=== PATIENT | male | born 1955 | race Caucasian/White ===

== ENCOUNTER → 2020-03-04 07:39 | Outpatient (CLI) | payer SELFPAY ==
--- NOTE | 2020-03-04 07:54 | CT_ITS ---
PROCEDURE: CT HEART W CALCIUM SCORE CLINICAL HISTORY: SCREENING COMPARISON: No exams were available for comparison TECHNIQUE: Axial images obtained with sagittal and coronal reformats. All CT scans at the facility use one or more dose reduction, viz: automated exposure control, ma/kV adjustment per patient size (including targeted exams where dose is matched to indication, i.e. head), or iterative reconstruction technique. FINDINGS: The calcium score is 2. minimal calcific plaque burden with low cardiovascular disease risk Incidental note is made of a 3 cm left adrenal nodule. This is low-density measuring -18 Hounsfield units consistent with an adenoma. IMPRESSION: Minimal calcific plaque burden with low cardiovascular disease risk Left adrenal adenoma Dictated by: Piter Cline MD 03/04/2020 17:23 Piter Cline MD in [place] 03/04/2020 17:23
== END ==
PROVIDERS: PCP Family Medicine; Visit Provider Family Medicine
DX: Z13.6 Encounter for screening for cardiovascular disorders (principal)
CPT/HCPCS: 75571

== ENCOUNTER → 2020-05-17 09:18 | Outpatient (CLI) | payer OTHER, SELFPAY ==
[2020-05-17 11:22] LABS: Coronavirus 19 IgG Antibody Negative (Negative); Coronavirus 19 IgM Antibody Negative (Negative)
== END ==
PROVIDERS: Visit Provider Ophthalmology
DX: Z01.818 Encounter for other preprocedural examination (principal)
CPT/HCPCS: 36415; 86328

== ENCOUNTER 2020-05-18 09:04 | Day surgery (SDC) | payer MEDICARE, SELFPAY ==
[2020-05-18 10:13] VITALS: BP 126/79; PULSE 77; RESP 18; TEMP 36.7; O2SAT 93; BMI 47.7
[2020-05-18 11:17] VITALS: BP 104/56; PULSE 72; RESP 18; O2SAT 97
[2020-05-18 11:22] VITALS: BP 106/62; PULSE 65; RESP 18; O2SAT 93
[2020-05-18 11:27] VITALS: BP 113/76; PULSE 61; RESP 18; O2SAT 97
[2020-05-18 11:32] VITALS: BP 105/59; PULSE 62; RESP 18; O2SAT 98
[2020-05-18 11:37] VITALS: BP 158/82; PULSE 66; RESP 18; TEMP 36.3; O2SAT 97
== END 2020-05-18 11:45 | disposition home or self-care (01) ==
PROVIDERS: PCP Family Medicine; Visit Provider Ophthalmology
DX: H25.813 Combined forms of age-related cataract, bilateral (principal); H53.149 Visual discomfort, unspecified; H43.392 Other vitreous opacities, left eye; M19.90 Unspecified osteoarthritis, unspecified site; I10 Essential (primary) hypertension; H91.90 Unspecified hearing loss, unspecified ear; Z80.9 Family history of malignant neoplasm, unspecified; Z83.3 Family history of diabetes mellitus; Z82.49 Family history of ischemic heart disease and other diseases of the circulatory system; Z79.82 Long term (current) use of aspirin; Z79.899 Other long term (current) drug therapy; Z88.0 Allergy status to penicillin
CPT/HCPCS: 66984; V2632

== ENCOUNTER → 2020-06-21 08:14 | Outpatient (CLI) | payer MEDICARE, SELFPAY ==
[2020-06-21 09:29] LABS: Coronavirus 19 IgG Antibody Negative (Negative); Coronavirus 19 IgM Antibody Negative (Negative)
== END ==
PROVIDERS: Visit Provider Ophthalmology
DX: Z01.812 Encounter for preprocedural laboratory examination (principal); Z11.52 Encounter for screening for COVID-19; H25.11 Age-related nuclear cataract, right eye
CPT/HCPCS: 36415; 86328

== ENCOUNTER 2020-06-22 08:47 | Day surgery (SDC) | payer MEDICARE, SELFPAY ==
[2020-06-16 10:47] VITALS: BMI 47.5
[2020-06-22 10:01] VITALS: BP 125/71; PULSE 72; RESP 18; TEMP 36.6; O2SAT 96
[2020-06-22 11:05] VITALS: BP 119/55; PULSE 66; RESP 22; O2SAT 95
[2020-06-22 11:10] VITALS: BP 118/57; PULSE 62; RESP 20; O2SAT 96
[2020-06-22 11:15] VITALS: BP 119/66; PULSE 61; RESP 20; O2SAT 97
[2020-06-22 11:20] VITALS: BP 128/72; PULSE 63; RESP 22; O2SAT 98
[2020-06-22 11:24] VITALS: BP 123/73; PULSE 66; RESP 18; TEMP 36.4; O2SAT 95
== END 2020-06-22 11:33 | disposition home or self-care (01) ==
LOC: OR 08:52
PROVIDERS: PCP Family Medicine; Visit Provider Ophthalmology
DX: H25.813 Combined forms of age-related cataract, bilateral (principal); H43.392 Other vitreous opacities, left eye; Z88.0 Allergy status to penicillin; M19.90 Unspecified osteoarthritis, unspecified site; I10 Essential (primary) hypertension; Z80.9 Family history of malignant neoplasm, unspecified; Z83.3 Family history of diabetes mellitus; Z82.49 Family history of ischemic heart disease and other diseases of the circulatory system
CPT/HCPCS: 66984; V2632

== ENCOUNTER → 2020-08-10 09:36 | Outpatient (CLI) | payer MEDICARE, SELFPAY ==
--- NOTE | 2020-08-10 09:43 | US_ITS ---
APPROVED REPORT Exam Type: Ankle to Brachial Index Marketing Services Vice President: Radha Foster RCS, RVS Indications Claudication: Rest Pain: Edema History of Smoking morbid obesity Pressures/Indices Right Indices Left Indices Brachial 136.00 mmHg Brachial 133.00 mmHg Low Thigh 140.00 mmHg 1.03 Low Thigh 142.00 mmHg 1.04 Calf 133.00 mmHg 0.98 Calf 137.00 mmHg 1.01 Ankle(PT) 137.00 mmHg 1.01 Ankle(PT) 134.00 mmHg 0.99 Ankle(DP) 137.00 mmHg 1.01 Ankle(DP) 139.00 mmHg 1.02 Digit 124.00 mmHg 0.91 Digit 127.00 mmHg 0.93 Findings RT SANDY=1.01 LT SANDY=1.02 RT TPI=0.91 LT TPI=0.93 Normal pulses and waveforms throughout exam. Conclusion RT SANDY=1.01 LT SANDY=1.02 RT TPI=0.91 LT TPI=0.93 Normal pulses and waveforms throughout exam. Electronically signed by : Piter Cline MD 08/10/2020 18:27:51
== END ==
PROVIDERS: PCP Family Medicine; Visit Provider Family Medicine
DX: I70.213 Atherosclerosis of native arteries of extremities with intermittent claudication, bilateral legs (principal)
CPT/HCPCS: 93923

== ENCOUNTER → 2020-09-24 08:54 | Outpatient (CLI) | payer MEDICARE, SELFPAY ==
[2020-09-24 09:32] LABS: Basophils % 0.7 % (0.1-2.0); Eosinophils # 0.2 K/mm3 (0.0-0.4); Eosinophils % 3.5 % (0.1-12.0); Hematocrit 42.4 % (42.0-52.0); Hemoglobin 13.5 g/dL (14.1-18.0); Lymphocytes # 0.8 K/mm3 (0.7-4.5); Lymphocytes % 14.7 % (10-50); Mean Corpuscular HGB Conc 31.8 g/dL (31.8-35.4); Mean Corpuscular Hemoglobin 28.8 pg (27.0-31.2); Mean Corpuscular Volume 90.5 fl (80-94); Mean Platelet Volume 7.8 fl (7.4-10.4); Monocytes # 0.4 K/mm3 (0.1-1.0); Monocytes % 7.2 % (1.7-9.3); Neutrophils % 73.9 % (37.0-80.0); Platelet Count 147 K/mm3 (142-424); Red Blood Count 4.68 M/mm3 (4.60-6.20); Red Cell Distribution Width 13.8 % (11.5-17.5); White Blood Count 5.5 K/mm3 (4.8-10.8)
[2020-09-24 10:03] LABS: Alanine Aminotransferase 16 U/L (12-78); Albumin Level 3.9 g/dl (3.5-5.0); Albumin/Globulin Ratio 1.6 (1.1-1.8); Alkaline Phosphatase 60 U/L (38-126); Anion Gap 8.8 mEq/L (5-15); Aspartate Amino Transferase 22 U/L (17-59); Bilirubin,Total 0.8 mg/dl (0.2-1.3); Blood Urea Nitrogen 20 mg/dl (9-20); Calcium 9.1 mg/dl (8.4-10.2); Carbon Dioxide 27 mmol/L (22.0-30.0); Chloride 105 mmol/L (98-107); Chol/HDL Ratio 3.3 (1-3.5); Cholesterol 195 mg/dl (140-200); Estimated Glomerular Filt Rate 75 ml/min (>60); GFR (African American) 91 ML/MIN (>60); Globulin 2.4 g/dL (1.3-3.2); Glucose 111 mg/dl (74-100); HDL Cholesterol 59 mg/dl (40-60); Potassium 3.8 mmoL/L (3.5-5.1); Sodium 137 mmol/L (136-145); Total Protein,Serum 6.3 g/dl (6.3-8.2); Triglycerides 74 mg/dl (30-150); VLDL Cholesterol 15 mg/dL (0-40)
[2020-09-24 10:16] LABS: Direct LDL Cholesterol 106.13 mg/dL (100-129)
[2020-09-24 10:35] LABS: Prostate Specific Ag Screen 0.5 ng/ml (0.0-4.0); Thyroid Stimulating Hormone 1.12 uIU/mL (0.465-4.68)
[2020-09-24 10:44] LABS: Hemoglobin A1C 5.6 % (4.0-6.0)
[2020-09-24 10:54] LABS: Vitamin B12 337 pg/mL (239-931)
[2020-09-24 15:21] LABS: 25-OH Vitamin D, Total 29.5 ng/mL (30-100)
== END ==
PROVIDERS: Visit Provider Internal Medicine Adolescent Medicine
DX: Z00.00 Encounter for general adult medical examination without abnormal findings (principal); I10 Essential (primary) hypertension; E55.9 Vitamin D deficiency, unspecified; E66.01 Morbid (severe) obesity due to excess calories; G62.9 Polyneuropathy, unspecified; Z12.5 Encounter for screening for malignant neoplasm of prostate; Z68.42 Body mass index [BMI] 45.0-49.9, adult; Z87.891 Personal history of nicotine dependence; Z79.899 Other long term (current) drug therapy
CPT/HCPCS: 36415; 80053; 80061; 82306; 82607; 83036; 84443; 85025; G0103

== ENCOUNTER → 2020-12-07 09:21 | Outpatient (CLI) | payer MEDICARE, SELFPAY ==
[2020-12-07 09:52] LABS: Basophils % 0.5 % (0.1-2.0); Eosinophils # 0.1 K/mm3 (0.0-0.4); Eosinophils % 2.1 % (0.1-12.0); Hematocrit 43.6 % (42.0-52.0); Hemoglobin 14.5 g/dL (14.1-18.0); Mean Corpuscular HGB Conc 33.3 g/dL (31.8-35.4); Mean Corpuscular Hemoglobin 29.8 pg (27.0-31.2); Mean Corpuscular Volume 89.4 fl (80-94); Mean Platelet Volume 7.7 fl (7.4-10.4); Monocytes # 0.4 K/mm3 (0.1-1.0); Monocytes % 6.8 % (1.7-9.3); Neutrophils # 4.8 K/mm3 (1.8-7.8); Neutrophils % 74.6 % (37.0-80.0); Platelet Count 159 K/mm3 (142-424); Red Blood Count 4.88 M/mm3 (4.60-6.20); Red Cell Distribution Width 13.7 % (11.5-17.5); White Blood Count 6.4 K/mm3 (4.8-10.8)
[2020-12-07 10:11] LABS: Alanine Aminotransferase 19 U/L (12-78); Albumin/Globulin Ratio 1.5 (1.1-1.8); Alkaline Phosphatase 59 U/L (38-126); Anion Gap 12.4 mEq/L (5-15); Aspartate Amino Transferase 19 U/L (17-59); Blood Urea Nitrogen 23 mg/dl (9-20); Calcium 9.1 mg/dl (8.4-10.2); Carbon Dioxide 30 mmol/L (22.0-30.0); Chloride 102 mmol/L (98-107); Estimated Glomerular Filt Rate 75 ml/min (>60); GFR (African American) 91 ML/MIN (>60); Globulin 2.6 g/dL (1.3-3.2); Glucose 102 mg/dl (74-100); Potassium 4.4 mmoL/L (3.5-5.1); Sodium 140 mmol/L (136-145); Total Protein,Serum 6.6 g/dl (6.3-8.2)
[2020-12-07 10:21] LABS: Erythrocyte Sedimentation Rate 9 mm/hr (0-20)
[2020-12-07 10:43] LABS: Thyroid Stimulating Hormone 1.37 uIU/mL (0.465-4.68)
[2020-12-07 11:01] LABS: Vitamin B12 376 pg/mL (239-931)
[2020-12-08 15:25] LABS: Anti-Centromere B Antibodies <0.2 AI (0.0-0.9); Anti-DNA (DS) Ab Qn <1 IU/mL (0-9); Anti-Jo-1 <0.2 AI (0.0-0.9); Anti-Smith Antibody <0.2 AI (0.0-0.9); Antichromatin Antibodies <0.2 AI (0.0-0.9); Antiscleroderma-70 Antibodies <0.2 AI (0.0-0.9); RNP Antibodies <0.2 AI (0.0-0.9); Sjogren's Anti-SS-A <0.2 AI (0.0-0.9); Sjogren's Anti-SS-B <0.2 AI (0.0-0.9)
== END ==
PROVIDERS: Visit Provider Internal Medicine Adolescent Medicine
DX: G62.9 Polyneuropathy, unspecified (principal); M12.9 Arthropathy, unspecified; Z79.899 Other long term (current) drug therapy
CPT/HCPCS: 36415; 80053; 82607; 84443; 85025; 85651; 86225; 86235

== ENCOUNTER → 2021-03-14 11:07 | Outpatient (CLI) | payer MEDICARE, SELFPAY ==
[2021-03-14 11:42] LABS: Basophils % 0.5 % (0.1-2.0); Eosinophils # 0.2 K/mm3 (0.0-0.4); Eosinophils % 3.5 % (0.1-12.0); Hematocrit 46.4 % (42.0-52.0); Hemoglobin 14.7 g/dL (14.1-18.0); Lymphocytes # 1.2 K/mm3 (0.7-4.5); Lymphocytes % 19.4 % (10-50); Mean Corpuscular HGB Conc 31.7 g/dL (31.8-35.4); Mean Corpuscular Hemoglobin 29.8 pg (27.0-31.2); Mean Platelet Volume 8.3 fl (7.4-10.4); Monocytes # 0.3 K/mm3 (0.1-1.0); Monocytes % 4.8 % (1.7-9.3); Neutrophils # 4.6 K/mm3 (1.8-7.8); Neutrophils % 71.7 % (37.0-80.0); Platelet Count 169 K/mm3 (142-424); Red Blood Count 4.93 M/mm3 (4.60-6.20); Red Cell Distribution Width 13.6 % (11.5-17.5); White Blood Count 6.4 K/mm3 (4.8-10.8)
[2021-03-14 11:55] LABS: Alanine Aminotransferase 17 U/L (12-78); Albumin Level 3.8 g/dl (3.5-5.0); Albumin/Globulin Ratio 1.5 (1.1-1.8); Alkaline Phosphatase 66 U/L (38-126); Anion Gap 11.1 mEq/L (5-15); Aspartate Amino Transferase 20 U/L (17-59); Bilirubin,Total 0.6 mg/dl (0.2-1.3); Blood Urea Nitrogen 16 mg/dl (9-20); Carbon Dioxide 28 mmol/L (22.0-30.0); Chloride 105 mmol/L (98-107); Chol/HDL Ratio 3.3 (1-3.5); Cholesterol 201 mg/dl (140-200); Estimated Glomerular Filt Rate 85 ml/min (>60); GFR (African American) 103 ML/MIN (>60); Globulin 2.6 g/dL (1.3-3.2); Glucose 112 mg/dl (74-100); HDL Cholesterol 61 mg/dl (40-60); Potassium 4.1 mmoL/L (3.5-5.1); Sodium 140 mmol/L (136-145); Total Protein,Serum 6.4 g/dl (6.3-8.2); Triglycerides 71 mg/dl (30-150); VLDL Cholesterol 14 mg/dL (0-40)
[2021-03-14 11:58] LABS: Hemoglobin A1C 5.8 % (4.0-6.0)
[2021-03-14 12:06] LABS: Direct LDL Cholesterol 111.95 mg/dL (100-129)
[2021-03-14 12:12] LABS: 25-OH Vitamin D, Total 58.2 ng/mL (30-100)
[2021-03-14 12:26] LABS: Thyroid Stimulating Hormone 1.06 uIU/mL (0.465-4.68)
== END ==
PROVIDERS: Visit Provider Internal Medicine Adolescent Medicine
DX: I10 Essential (primary) hypertension (principal); G62.9 Polyneuropathy, unspecified; Z79.899 Other long term (current) drug therapy; Z87.891 Personal history of nicotine dependence
CPT/HCPCS: 36415; 80053; 80061; 82306; 83036; 84443; 85025

== ENCOUNTER → 2021-04-18 13:06 | Outpatient (CLI) | payer MEDICARE, SELFPAY ==
--- NOTE | 2021-04-18 13:06 | MR_ITS ---
PROCEDURE: MR LUMBAR SPINE WO CON CLINICAL INDICATION: eval for spinal stenosis with myelopathy COMPARISON: No exams were available for comparison TECHNIQUE: Standard multiplanar multiecho sequences are performed without contrast. 3-D MIP and myelographic images are also rendered and reviewed FINDINGS: There is considerable motion artifact which limits evaluation. There is normal alignment. The spinal cord ends at the T12-L1 level. T12-L1: Mild degenerative disc disease. There is mild right paracentral and foraminal disc protrusion causing right lateral recess narrowing with impingement upon the right L1 nerve root anteriorly. Facet and ligamentum hypertrophic changes are present with moderate right-sided foraminal narrowing. Borderline canal stenosis at this level. L1-L2: Facet and ligamentum hypertrophic change. L2-L3: Facet and ligamentum hypertrophic changes. L3-L4: Degenerative disc disease with bulging disc with facet and ligamentum hypertrophic changes with severe bilateral lateral recess narrowing and moderate bilateral foraminal narrowing slightly greater on the left. Canal stenosis at this level with both transverse and AP narrowing of the canal. L4-5: Degenerative disc disease with a bulging disc along with moderate to severe facet and ligamentum hypertrophic change with bilateral lateral recess narrowing, bilateral foraminal narrowing, and transverse narrowing of the canal at 9 mm. L5-S1: Bulging disc with facet and ligamentum hypertrophic change with moderate bilateral foraminal narrowing. No extruded herniated disc. Subcutaneous edema noted in the subcutaneous fat in the posterior lumbar area. 3.5 cm right renal cyst IMPRESSION: Somewhat limited study secondary to motion artifact and patient body habitus. Multilevel lumbar spondylosis with lateral recess narrowing foraminal narrowing and canal stenosis. Please see above for detailed description at each level. Dictated by: Piter Cline MD 04/19/2021 11:41 Piter Cline MD in [place] 04/19/2021 11:41
--- NOTE | 2021-04-18 13:06 | MR_ITS ---
PROCEDURE: MR THORACIC SPINE WO CON CLINICAL INDICATION: eval for spinal stenosis with myelopathy COMPARISON: MR MR LUMBAR SPINE WO CON from 04/18/2021 TECHNIQUE: Routine multiplanar multi echo sequences are performed without gadolinium enhancement. FINDINGS: There is normal alignment. No acute fracture or dislocation is evident. There is multilevel thoracic spondylosis with multilevel degenerative disc disease and small bulging discs. Partial fusion noted along the posterior aspect of T8/T9 C7-T1: Small bulging disc with degenerative disc disease. T1-T2: Degenerative disc disease. T2-T3: Degenerative disc disease with small posterior bulging disc without impingement. T3-T4: Some degenerative disc disease with small posterior bulging disc without impingement. T4-T5: Degenerative disc disease. Small Schmorl's node along the superior endplate of T5. Prominent anterior osteophyte on the right T6-T7: Degenerative disc disease. Prominent anterior osteophytes on the right T6-T7: Degenerative disc disease with small posterior bulging disc. Mildly prominent anterior osteophytes on the right T7-T8: Degenerative disc disease. T8-T9: Partial fusion along the posterior endplates with decrease in the intervertebral disc space centrally and anteriorly. T9-T10: Degenerative disc disease. T10-T11: Prominent anterior osteophyte. Facet and ligamentum hypertrophic changes present bilaterally greater on the right with mild right lateral recess narrowing. This abuts the posterior aspect of the cord without displacement or flattening. Prominent anterior osteophyte on the right T11-T12: Degenerative disc disease with facet hypertrophic change. Prominent anterior osteophyte on the right T12-L1: Degenerative disc disease with a broad based right paracentral and foraminal disc protrusion causing right lateral recess narrowing and impingement upon the L1 nerve root with right-sided foraminal narrowing. IMPRESSION: Multilevel thoracic spondylosis with multilevel degenerative disc disease and small bulging discs along with facet and ligamentum hypertrophy. Please see above for detailed description at each level. Broad-based right paracentral and foraminal disc protrusion at T12-L1 with facet and ligamentum hypertrophy causing some mild impingement upon the right L1 nerve root with right-sided foraminal narrowing. Dictated by: Piter Cline MD 04/19/2021 11:49 Piter Cline MD in [place] 04/19/2021 11:49
== END ==
PROVIDERS: PCP Internal Medicine Adolescent Medicine; Referring Provider Specialist; Visit Provider Nurse Practitioner Family
DX: M54.50 Low back pain, unspecified (principal); M79.604 Pain in right leg; M79.605 Pain in left leg; R20.0 Anesthesia of skin; R20.2 Paresthesia of skin; Z68.43 Body mass index [BMI] 50.0-59.9, adult; M45.5 Ankylosing spondylitis of thoracolumbar region; G47.33 Obstructive sleep apnea (adult) (pediatric)
CPT/HCPCS: 72146; 72148; 76376; 94762

== ENCOUNTER → 2022-04-14 10:04 | Outpatient (CLI) | payer MEDICARE, SELFPAY ==
[2022-04-14 10:56] LABS: Basophils # 0.1 K/mm3 (0-0.2); Basophils % 2.3 % (0.1-2.0); Eosinophils # 0.1 K/mm3 (0.0-0.4); Eosinophils % 2.4 % (0.1-12.0); Hematocrit 44.6 % (42.0-52.0); Lymphocytes # 0.9 K/mm3 (0.7-4.5); Lymphocytes % 15.1 % (10-50); Mean Corpuscular HGB Conc 31.4 g/dL (31.8-35.4); Mean Corpuscular Hemoglobin 29.4 pg (27.0-31.2); Mean Corpuscular Volume 93.6 fl (80-94); Mean Platelet Volume 8.1 fl (7.4-10.4); Monocytes # 0.3 K/mm3 (0.1-1.0); Monocytes % 5.6 % (1.7-9.3); Neutrophils # 4.2 K/mm3 (1.8-7.8); Neutrophils % 74.6 % (37.0-80.0); Platelet Count 158 K/mm3 (142-424); Red Blood Count 4.77 M/mm3 (4.60-6.20); Red Cell Distribution Width 13.5 % (11.5-17.5); White Blood Count 5.7 K/mm3 (4.8-10.8)
[2022-04-14 10:59] LABS: Hemoglobin A1C 5.6 % (4.0-6.0)
[2022-04-14 11:11] LABS: Alanine Aminotransferase 20 U/L (12-78); Albumin/Globulin Ratio 1.7 (1.1-1.8); Alkaline Phosphatase 73 U/L (38-126); Anion Gap 12.9 mEq/L (5-15); Aspartate Amino Transferase 24 U/L (17-59); Bilirubin,Total 0.4 mg/dl (0.2-1.3); Blood Urea Nitrogen 25 mg/dl (9-20); Calcium 9.5 mg/dl (8.4-10.2); Carbon Dioxide 30 mmol/L (22.0-30.0); Chloride 101 mmol/L (98-107); Chol/HDL Ratio 3.4 (1-3.5); Cholesterol 199 mg/dl (140-200); Estimated Glomerular Filt Rate 75 ml/min (>60); GFR (African American) 91 ML/MIN (>60); Globulin 2.3 g/dL (1.3-3.2); Glucose 93 mg/dl (74-100); HDL Cholesterol 59 mg/dl (40-60); Potassium 3.9 mmoL/L (3.5-5.1); Sodium 140 mmol/L (136-145); Total Protein,Serum 6.3 g/dl (6.3-8.2); Triglycerides 58 mg/dl (30-150); VLDL Cholesterol 12 mg/dL (0-40)
[2022-04-14 11:22] LABS: Direct LDL Cholesterol 111.19 mg/dL (100-129)
[2022-04-14 11:28] LABS: 25-OH Vitamin D, Total 36.1 ng/mL (30-100)
[2022-04-14 11:42] LABS: Prostate Specific Ag Screen 0.6 ng/ml (0.0-4.0)
[2022-04-14 12:01] LABS: Vitamin B12 469 pg/mL (239-931)
[2022-04-15 12:13] LABS: Insulin Level Total 82.7 uIU/mL (2.6-24.9)
== END ==
PROVIDERS: PCP Internal Medicine Adolescent Medicine; Visit Provider Surgery
DX: I10 Essential (primary) hypertension (principal); E55.9 Vitamin D deficiency, unspecified; M12.9 Arthropathy, unspecified; G62.9 Polyneuropathy, unspecified; E66.01 Morbid (severe) obesity due to excess calories; Z68.41 Body mass index [BMI] 40.0-44.9, adult; Z12.5 Encounter for screening for malignant neoplasm of prostate; Z79.899 Other long term (current) drug therapy
CPT/HCPCS: 36415; 80053; 80061; 82306; 82607; 83036; 83525; 85025; G0103

== ENCOUNTER 2022-04-18 11:16 | Day surgery (SDC) | payer MEDICARE, SELFPAY ==
[2022-04-18] VITALS (8 sets, daily range): BP systolic 106–145; BP diastolic 44–84; PULSE 67–80; RESP 16–18; TEMP 36.1–36.4; O2SAT 94–99; BMI 49.4
--- NOTE | 2022-04-18 12:30 | P.PN_ITS ---
[facility] Medical History Hypertension Surgical History (Updated 04/18/22 @ 11:35 by Cecilia Wright RN) History of right hip replacement Hx of cataract surgery Hx of inguinal hernia repair Family History (Updated 04/18/22 @ 11:39 by Cecilia Wright RN) Other Family history of cancer Family history of diabetes mellitus type II Family history of myocardial infarction Social History (Updated 04/18/22 @ 11:39 by Cecilia Wright RN) Smoking Status: Former smoker quit date: 01/17/84 pack-years: 13 second hand exposure: Yes alcohol intake: current substance use type: denies use current occupational status: retired Travel in the last 8 weeks: None household members: spouse housing: house lives independently: Yes marital status: education level: high school service: No penitentiary: No caffeine: Yes special vasquez needs: No agree to transfusion: No do you feel safe at home: Yes victim of physical abuse: No victim of emotional abuse: No victim of sexual abuse: No would you like helpful sources: No [facility] Anesthesia Checklist Patient Identification Patient Identification: Arm Band Structural Data Admitted From: Home Planned Operative Procedure/s: Excision Right Thigh Mass Consent for Planned Operative Procedure(s) Verified: Yes Verified Documents: Surgical Consent and History and Physical NPO Status Verified Time NPO: 00:00 Additional verifications Anesthesia Reactions: No Hx Blood Transfusions: No Blood Transfusion Reaction: No Airway Assessment C-Spine Mobility Assessed: Yes TMJ Mobility Assessed: Yes Dentition: Good Dentition Neurological Assessment Level of Consciousness: Awake and Alert Anesthesia Plan Anesthesia Risk discussed: Yes Anesthesia Plan: Verified ASA Class: III Anesthesia Type: General
--- NOTE | 2022-04-18 13:56 | P.OP_ITS ---
Date of procedure: 04/18/22 Pre-op Diagnosis:: Right lower extremity soft tissue mass (8 cm) Post-op Diagnosis:: Same (complex cystic mass) Procedure performed:: Excision of 8 cm right lower extremity mass (complex cystic mass) Surgeon:: Davonte Rico MD Anesthesia: local and LMA Estimated blood loss (mL): 10 Operative findings:: Complex subcutaneous cystic mass with multiple projections, intermittently- thickened, and cloudy fluid Operative note:: After informed consent was obtained the patient was taken to the operating room and placed in the supine position. General anesthesia with laryngeal mask airway was achieved. His proximal right lower extremity was prepped and draped in a sterile fashion. After infiltration local anesthetic an incision was made overlying the palpable mass. The deep subcutaneous tissue was dissected with a combination of sharp dissection, blunt dissection, and electrocautery. The complex cystic mass with cloudy fluid was encountered. The wall of the cystic mass contained multiple projections and was noted to be intermittently thickened. To the degree possible the wall of the cystic mass was excised with electrocautery and passed off for pathologic evaluation. The mass was noted to be throughout the subcutaneous tissue but did not appear to involve the underlying fascial margin/musculature. Electrocautery was utilized to achieve hemostasis. The wound was thoroughly irrigated and skin was then reapproximated with interrupted 4-0 nylon. Dressings were applied and the patient was transferred to recovery in stable condition. Condition: stable Disposition: PACU Specimens:: Complex cystic right lower extremity lesion Complications:: No immediate
--- NOTE | 2022-04-18 14:02 | EXP.ANES.I ---
[facility] Anesthesia Record Part I Anesthesia Record I Intake, IV Amount: 500 Estimated blood loss (mL): 2 Urine output (mL): 0 Blood Pressure: 112/44 SaO2: 96 Pulse Rate: 80 Respiratory Rate: 16 Temperature: 97.0 F Patient is:: Drowsy and Stable Stable to PACU at:: 14:01
[2022-04-19 08:06] VITALS: BP 116/67; PULSE 72; TEMP 36.4
--- NOTE | 2022-04-19 08:06 | P.PNANES_ITS ---
[facility] Anesthesia Record Part II Anesthesia Record Part II Discharge Time: 14:21 Destination: Surgical Day Care (OP Surgery) PACU nurse assessment reviewed?: Yes Patient Condition:: Good Anesthesia Complications:: None Swallowing reflex intact?: Yes Cyanosis?: No Blood Pressure: 116/67 Pulse Rate: 72 Temperature: 97.6 F Mental Status: Alert & Oriented Pain level:: 0 Nausea and/or vomitting:: None Intake, IV Amount: 0
== END 2022-04-18 14:53 | disposition home or self-care (01) ==
PROVIDERS: PCP Internal Medicine Adolescent Medicine; Visit Provider Surgery
DX: M79.9 Soft tissue disorder, unspecified (principal)
CPT/HCPCS: 27632; 88305; 96374; J2405

== ENCOUNTER 2022-06-18 09:56 | Emergency (ER) | payer MEDICARE, SELFPAY ==
[2022-06-18 09:57] VITALS: BP 165/93; PULSE 100; RESP 18; TEMP 36.6; O2SAT 98; BMI 51.4
--- NOTE | 2022-06-18 10:12 | HMH.EDABDPAI ---
Discharge Plan Disposition Patient Disposition: Home, Self-Care Condition: Fair Prescriptions Prescriptions: New ketorolac 10 mg tablet 10 mg PO Q8H PRN (Reason: pain) 3 Days Qty: 10 0RF No Action acetaminophen [Tylenol Extra Strength] 500 mg tablet 500 mg PO Q6H PRN duloxetine 30 mg capsule,delayed release(DR/EC) 30 mg PO QHS Qty: 30 1RF aspirin 81 MG tablet,delayed release (DR/EC) 81 mg PO DAILY naproxen sodium 220 MG tablet 225 mg PO DAILYP PRN (Reason: arthritis) lisinopril-hydrochlorothiazide 1 EACH tablet 1 tab PO DAILY doxazosin 2 MG tablet 4 mg PO DAILY hydrocodone-acetaminophen 5-325 mg tablet 1 tab PO Q6H PRN (Reason: post-op pain) Qty: 7 0RF Rx Instructions: Do not take in addition to Tylenol Referrals Follow up/Referrals: Samuel Galeas MD [Primary Care Provider] - See instructions Clinical Impressions Clinical Impression: Pancreatitis Instructions Patient Instructions: DI for Acute Abdominal Pain Discharge ED Provider: Shamir Barraza Abdominal Pain HPI General Chief Complaint: Abdominal Pain Stated Complaint: abd pain, MOLINA, fatigue, body aches Time Seen by Provider: 06/18/22 11:38 Mode of Arrival: Ambulatory Source of Information: Patient Limitations: No Limitations Description of Symptoms (Recalled from ER Triage Doc. by RN): c/o left abdomen pain, body aches and fatigue for the past 3 days. states that he pcp started him on some medicine for his sugar and he has been constipated since with no bm for 3 days History of Present Illness HPI narrative: Patient presents for evaluation of abdominal discomfort. He said he feels as though he has the flu. He did have the flu recently, but recovered. He thinks these are side effects from his medications and his constipation currently. He has not had a substantial bowel movement in the last 3 days. He did have a bowel movement this morning. He is passing gas. Patient has a past medical history of diabetes which is poorly controlled and this medication has been new with once weekly injections over the last 4 weeks. He tried a similar medication previously with similar side effects and had to be swap. He denies vomiting, nausea. Related Data Home Medications Medication Instructions Recorded Confirmed aspirin 81 mg tablet,delayed 81 mg PO DAILY HEART HEALTHY 05/18/20 04/26/22 release doxazosin 2 mg tablet 4 mg PO DAILY BP 05/18/20 04/26/22 lisinopril 20 1 tab PO DAILY BP 05/18/20 04/26/22 mg-hydrochlorothiazide 25 mg tablet naproxen sodium 220 mg tablet 225 mg PO DAILYP PRN arthritis 05/18/20 04/26/22 acetaminophen 500 mg tablet 500 mg PO Q6H PRN 04/04/21 04/26/22 (Tylenol Extra Strength) Previous Rx's Medication Instructions Recorded duloxetine 30 mg capsule,delayed 30 mg PO QHS #30 caps 04/04/21 release hydrocodone 5 mg-acetaminophen 325 1 tab PO Q6H PRN post-op pain #7 04/18/22 mg tablet tabs ketorolac 10 mg tablet 10 mg PO Q8H PRN pain 3 days #10 06/18/22 tabs Allergies Allergy/AdvReac Type Severity Reaction Status Date / Time Penicillins Allergy Unknown Verified 04/26/22 14:34 allergy reaction PFSH PFS Disclaimer: The information contained in this section may have been updated after the patient was seen, as this information can be updated by other users. Medical History Hypertension Surgical History History of right hip replacement Hx of cataract surgery Hx of inguinal hernia repair Family History Other Family history of cancer Family history of diabetes mellitus type II Family history of myocardial infarction Social History Smoking Status: Never smoker second hand exposure: Yes a
[2022-06-18 10:19] LABS: Coronavirus 19, PCR Not Detected (NotDetected); Influenza A, PCR Not Detected (NotDetected); Influenza B, PCR Not Detected (NotDetected)
[2022-06-18 10:22] LABS: Basophils % 0.3 % (0.1-2.0); Eosinophils # 0.2 K/mm3 (0.0-0.4); Eosinophils % 1.6 % (0.1-12.0); Hematocrit 42.8 % (42.0-52.0); Hemoglobin 14.1 g/dL (14.1-18.0); Lymphocytes # 0.8 K/mm3 (0.7-4.5); Lymphocytes % 6.7 % (10-50); Mean Corpuscular Hemoglobin 29.1 pg (27.0-31.2); Monocytes # 0.6 K/mm3 (0.1-1.0); Monocytes % 4.6 % (1.7-9.3); Neutrophils # 10.6 K/mm3 (1.8-7.8); Neutrophils % 86.8 % (37.0-80.0); Platelet Count 152 K/mm3 (142-424); Red Blood Count 4.86 M/mm3 (4.60-6.20); Red Cell Distribution Width 14.3 % (11.5-17.5); White Blood Count 12.2 K/mm3 (4.8-10.8)
[2022-06-18 10:23] LABS: MANUAL DIFFERENTIAL MANUAL DIFFERENTIAL (MANUAL DIFF)
[2022-06-18 10:24] LABS: Chloride 100 mmol/L (98-107)
[2022-06-18 10:25] LABS: Potassium 3.6 mmoL/L (3.5-5.1); Sodium 136 mmol/L (136-145)
[2022-06-18 10:27] LABS: Alanine Aminotransferase 21 U/L (12-78); Alkaline Phosphatase 69 U/L (38-126); Amylase 1068 U/L (30-110); Anion Gap 10.6 mEq/L (5-15); Aspartate Amino Transferase 23 U/L (17-59); Bilirubin,Total 1.1 mg/dl (0.2-1.3); Blood Urea Nitrogen 20 mg/dl (9-20); Carbon Dioxide 29 mmol/L (22.0-30.0); Creatinine Clearance Estimated 83 mL/min (50-200); Estimated Glomerular Filt Rate 75 ml/min (>60); GFR (African American) 91 ML/MIN (>60); Glucose 120 mg/dl (74-100)
[2022-06-18 10:28] LABS: Albumin Level 4.1 g/dl (3.5-5.0); Albumin/Globulin Ratio 1.2 (1.1-1.8); Calcium 8.7 mg/dl (8.4-10.2); Globulin 3.3 g/dL (1.3-3.2); Total Protein,Serum 7.4 g/dl (6.3-8.2)
[2022-06-18 10:31] VITALS: BP 139/88; PULSE 71; RESP 18; O2SAT 95
[2022-06-18 10:37] LABS: Eosinophils % 1 % (0-3); Lymphocytes % 8 % (10-50); Monocytes % 3 % (2-9); Neutrophils % 88 % (42-76); RBC Morphology Normal; Total Cells Counted 100
[2022-06-18 10:38] LABS: Platelet Estimate Normal
[2022-06-18 10:52] LABS: Lipase 7199 U/L (23-300)
[2022-06-18 11:26] VITALS: BP 124/56; PULSE 75; RESP 18; O2SAT 95
[2022-06-18 11:31] VITALS: BP 151/78; PULSE 79; RESP 19; O2SAT 95
--- NOTE | 2022-06-18 11:33 | PC.NURSE ---
has been paged
--- NOTE | 2022-06-18 11:33 | PC.NURSE ---
on the phone with
[2022-06-18 12:20] VITALS: BP 148/75; PULSE 73; RESP 18; TEMP 36.9; O2SAT 96
== END 2022-06-18 12:22 | disposition home or self-care (01) ==
PROVIDERS: Emergency Provider Emergency Medicine; PCP Internal Medicine Adolescent Medicine
DX: K85.90 Acute pancreatitis without necrosis or infection, unspecified (principal); I10 Essential (primary) hypertension; Z20.822 Contact with and (suspected) exposure to COVID-19
CPT/HCPCS: 80053; 82150; 83690; 85007; 85025; 96374; 96375; 99285; C9803; J2405; U0003; U0005

== ENCOUNTER → 2022-06-26 11:25 | Outpatient (CLI) | payer MEDICARE, SELFPAY ==
[2022-06-26 12:26] LABS: Basophils # 0.1 K/mm3 (0-0.2); Basophils % 0.4 % (0.1-2.0); Eosinophils # 0.2 K/mm3 (0.0-0.4); Eosinophils % 1.4 % (0.1-12.0); Hemoglobin 12.7 g/dL (14.1-18.0); Lymphocytes # 1.2 K/mm3 (0.7-4.5); Lymphocytes % 8.4 % (10-50); Mean Corpuscular HGB Conc 32.6 g/dL (31.8-35.4); Mean Corpuscular Volume 88.9 fl (80-94); Mean Platelet Volume 8.1 fl (7.4-10.4); Monocytes # 0.4 K/mm3 (0.1-1.0); Neutrophils # 12.7 K/mm3 (1.8-7.8); Neutrophils % 86.8 % (37.0-80.0); Platelet Count 274 K/mm3 (142-424); Red Blood Count 4.38 M/mm3 (4.60-6.20); Red Cell Distribution Width 14.1 % (11.5-17.5); White Blood Count 14.6 K/mm3 (4.8-10.8)
[2022-06-26 12:29] LABS: MANUAL DIFFERENTIAL MANUAL DIFFERENTIAL (MANUAL DIFF)
[2022-06-26 13:01] LABS: Lymphocytes % 8 % (10-50); Monocytes % 4 % (2-9); Neutrophils % 88 % (42-76); Platelet Estimate Normal; RBC Morphology Normal; Total Cells Counted 100
[2022-06-26 13:02] LABS: Chloride 93 mmol/L (98-107); Sodium 133 mmol/L (136-145)
[2022-06-26 13:03] LABS: Potassium 3.7 mmoL/L (3.5-5.1)
[2022-06-26 13:05] LABS: Alanine Aminotransferase 57 U/L (12-78); Alkaline Phosphatase 169 U/L (38-126); Anion Gap 12.7 mEq/L (5-15); Aspartate Amino Transferase 50 U/L (17-59); Blood Urea Nitrogen 18 mg/dl (9-20); Carbon Dioxide 31 mmol/L (22.0-30.0); Estimated Glomerular Filt Rate 75 ml/min (>60); GFR (African American) 91 ML/MIN (>60)
[2022-06-26 13:06] LABS: Calcium 8.2 mg/dl (8.4-10.2); Globulin 2.9 g/dL (1.3-3.2); Glucose 136 mg/dl (74-100); Total Protein,Serum 5.9 g/dl (6.3-8.2)
== END ==
PROVIDERS: PCP Internal Medicine Adolescent Medicine; Visit Provider Internal Medicine Adolescent Medicine
DX: R22.41 Localized swelling, mass and lump, right lower limb (principal)
CPT/HCPCS: 36415; 80053; 85007; 85025

== ENCOUNTER → 2022-07-13 08:16 | Outpatient (CLI) | payer MEDICARE, SELFPAY ==
[2022-07-13 09:14] LABS: Basophils # 0.1 K/mm3 (0-0.2); Basophils % 1.4 % (0.1-2.0); Eosinophils # 0.3 K/mm3 (0.0-0.4); Eosinophils % 5.6 % (0.1-12.0); Hematocrit 40.4 % (42.0-52.0); Hemoglobin 12.7 g/dL (14.1-18.0); Lymphocytes # 1.1 K/mm3 (0.7-4.5); Lymphocytes % 22.3 % (10-50); Mean Corpuscular HGB Conc 31.3 g/dL (31.8-35.4); Mean Corpuscular Hemoglobin 28.2 pg (27.0-31.2); Mean Corpuscular Volume 90.1 fl (80-94); Mean Platelet Volume 8.1 fl (7.4-10.4); Monocytes # 0.3 K/mm3 (0.1-1.0); Monocytes % 5.4 % (1.7-9.3); Neutrophils # 3.3 K/mm3 (1.8-7.8); Neutrophils % 65.4 % (37.0-80.0); Platelet Count 278 K/mm3 (142-424); Red Blood Count 4.49 M/mm3 (4.60-6.20); Red Cell Distribution Width 14.6 % (11.5-17.5)
[2022-07-13 09:40] LABS: Alanine Aminotransferase 20 U/L (12-78); Albumin Level 3.5 g/dl (3.5-5.0); Albumin/Globulin Ratio 1.3 (1.1-1.8); Alkaline Phosphatase 79 U/L (38-126); Amylase 63 U/L (30-110); Anion Gap 9.2 mEq/L (5-15); Aspartate Amino Transferase 20 U/L (17-59); Bilirubin,Total 0.6 mg/dl (0.2-1.3); Blood Urea Nitrogen 17 mg/dl (9-20); Calcium 8.7 mg/dl (8.4-10.2); Carbon Dioxide 27 mmol/L (22.0-30.0); Chloride 108 mmol/L (98-107); Estimated Glomerular Filt Rate 85 ml/min (>60); GFR (African American) 102 ML/MIN (>60); Globulin 2.6 g/dL (1.3-3.2); Glucose 118 mg/dl (74-100); Lipase 218 U/L (23-300); Potassium 4.2 mmoL/L (3.5-5.1); Sodium 140 mmol/L (136-145); Total Protein,Serum 6.1 g/dl (6.3-8.2)
== END ==
PROVIDERS: PCP Internal Medicine Adolescent Medicine; Visit Provider Internal Medicine Adolescent Medicine
DX: K85.30 Drug induced acute pancreatitis without necrosis or infection (principal)
CPT/HCPCS: 36415; 80053; 82150; 83690; 85025

== ENCOUNTER → 2022-08-02 12:53 | Outpatient (CLI) | payer MEDICARE, SELFPAY ==
--- NOTE | 2022-08-02 12:54 | US_ITS ---
FINAL REPORT CLINICAL HISTORY: soft tissue mass right lateral distal thigh COMPARISON: none FINDINGS: ULTRASOUND SOFT TISSUE LIMITED Sonographic images of the right lateral distal thigh in the area of interest were obtained. There is a 5.4 x 1.2 cm septated cystic mass in the right medial distal thigh. This may represent chronic hematoma or seroma. Abscess not excluded. IMPRESSION: Mass medial distal right thigh may represent chronic hematoma or seroma. Abscess not excluded. Reviewed, Interpreted and Dictated by Baldomero Ramires III, MD Transcribed by Elo Iyer Authenticated and [facility]
== END ==
PROVIDERS: PCP Internal Medicine Adolescent Medicine; Visit Provider Surgery
DX: M79.89 Other specified soft tissue disorders (principal)
CPT/HCPCS: 76882

== ENCOUNTER 2023-08-15 06:54 | Outpatient (CLI) | payer MEDICARE, SELFPAY ==
[2023-08-15 07:44] LABS: Basophils % 0.6 % (0.1-2.0); Eosinophils # 0.2 K/mm3 (0.0-0.4); Eosinophils % 2.5 % (0.1-12.0); Hematocrit 43.5 % (42.0-52.0); Hemoglobin 14.1 g/dL (14.1-18.0); Lymphocytes # 1.2 K/mm3 (0.7-4.5); Mean Corpuscular HGB Conc 32.4 g/dL (31.8-35.4); Mean Corpuscular Hemoglobin 30.3 pg (27.0-31.2); Mean Corpuscular Volume 93.4 fl (80-94); Mean Platelet Volume 8.5 fl (7.4-10.4); Monocytes # 0.4 K/mm3 (0.1-1.0); Monocytes % 6.5 % (1.7-9.3); Neutrophils # 4.4 K/mm3 (1.8-7.8); Neutrophils % 70.5 % (37.0-80.0); Platelet Count 142 K/mm3 (142-424); Red Blood Count 4.66 M/mm3 (4.60-6.20); Red Cell Distribution Width 13.5 % (11.5-17.5); White Blood Count 6.2 K/mm3 (4.8-10.8)
[2023-08-15 08:18] LABS: Alanine Aminotransferase 20 U/L (12-78); Albumin Level 3.8 g/dl (3.5-5.0); Albumin/Globulin Ratio 1.7 (1.1-1.8); Alkaline Phosphatase 64 U/L (38-126); Aspartate Amino Transferase 24 U/L (17-59); Bilirubin,Total 0.8 mg/dl (0.2-1.3); Blood Urea Nitrogen 21 mg/dl (9-20); Carbon Dioxide 30 mmol/L (22.0-30.0); Chloride 104 mmol/L (98-107); Chol/HDL Ratio 3.8 (1-3.5); Cholesterol 199 mg/dl (140-200); Estimated Glomerular Filt Rate 75 ml/min (>60); GFR (African American) 90 ML/MIN (>60); Globulin 2.3 g/dL (1.3-3.2); Glucose 118 mg/dl (74-100); HDL Cholesterol 53 mg/dl (40-60); Magnesium 1.8 mg/dl (1.6-2.3); Sodium 139 mmol/L (136-145); Total Protein,Serum 6.1 g/dl (6.3-8.2); Triglycerides 60 mg/dl (30-150); VLDL Cholesterol 12 mg/dL (0-40)
[2023-08-15 08:36] LABS: Direct LDL Cholesterol 107.21 mg/dL (100-129)
[2023-08-15 08:42] LABS: Free Thyroxine Index 2.6 ug/dL (5.93-13.13); T4 (Thyroxine) 7.6 ug/dl (5.53-11.0); Triiodothryronine (T3) Uptake 34 % (23.5-40.5)
[2023-08-15 08:48] LABS: Prostate Specific Ag Screen 0.6 ng/ml (0.0-4.0)
[2023-08-15 09:48] LABS: Hemoglobin A1C 5.9 % (4.0-6.0)
[2023-08-16 09:29] LABS: Insulin Level Total 26.1 uIU/mL (2.6-24.9); Testosterone,Total 246 ng/dL (264-916)
== END 2023-08-15 23:59 ==
LOC: LAB 06:56
PROVIDERS: PCP Internal Medicine Adolescent Medicine; Visit Provider Internal Medicine Adolescent Medicine
DX: E03.8 Other specified hypothyroidism (principal); I89.0 Lymphedema, not elsewhere classified; R73.09 Other abnormal glucose; E29.1 Testicular hypofunction; E66.01 Morbid (severe) obesity due to excess calories; Z68.42 Body mass index [BMI] 45.0-49.9, adult; Z12.5 Encounter for screening for malignant neoplasm of prostate
CPT/HCPCS: 36415; 80053; 80061; 82533; 83036; 83525; 83735; 84403; 84436; 84443; 84479; 85025; G0103

== ENCOUNTER 2024-09-04 07:47 | Outpatient (CLI) | payer MEDICARE, SELFPAY ==
--- NOTE | 2024-09-04 07:53 | CA_ITS ---
APPROVED REPORT EXAM: Comprehensive 2D, Doppler, and color-flow Echocardiogram Powder Blender And Pourer: Korian Aguilar RT(R) Ht: 6 ft 1 in Wt: 402lbs BSA: 2.89 BP: 124/84 mmHg Indications: edema, HTN. Limited windows secondary to body habitus. 2D Dimensions LVEF (Martinez's) 60.30 % M: 52 - 72 LV Volume 195.30 mL M: 62 - 150 LV Volume Index 67.3 mL/m2 M: 34 - 74 LA Volume 76.90 mL LA Volume Index 26.52 mL/m2 (M/F) 16-34 EF AP4 64.90 % EF AP2 55.2 % EF BP 60.3 % GL Strain -15.7 % M-Mode Dimensions RVDd 3.54 cm (0.9-2.6) LA Diam 5.17 cm (1.9-4.0) LVDd 5.31 cm (3.5-5.7) LVDs 4.13 cm (3.5-5.7) IVSd 0.97 cm (0.6-1.1) PWd 1.13 cm (0.6-1.1) EF (Teich) 44.40% FS 22.20% EDV (Teich) 135.90 mL ESV (Teich) 75.50 mL LV Diastology E Decel Time 182 (160-240 msec) E/A Ratio 0.9 Mitral Valve MV E Max Charanjit. 91.0 (40-130 cm/s) MV A Velocity 105.0 (40-130 cm/s) E/A Ratio 0.87 MV PHT 53.0 ms Left Ventricle The left ventricle is normal size. The left ventricular systolic function is normal. The left ventricular ejection fraction is within the normal range. There is increased LV wall thickness. There is normal LV segmental wall motion. The left ventricular diastolic function is normal. LVEF is 60%. Right Ventricle Right ventricle is mildly dilated. The right ventricular systolic function is normal. Atria Left atrium is mildly dilated. Right atrium is mildly dilated. There is no Doppler evidence of interatrial shunt. Aortic Valve The aortic valve is mildly thickened. There is no aortic valvular stenosis. Trace aortic regurgitation. Mitral Valve The mitral valve is normal in structure. No evidence of mitral valve stenosis. Trace mitral regurgitation. Tricuspid Valve Tricuspid valve is grossly normal in structure and function. Trace tricuspid regurgitation. There is insufficient TR jet to estimate RVSP. Pulmonic Valve The pulmonary valve is normal in structure. Trace pulmonic regurgitation. Great Vessels The aortic root is normal in size. IVC is normal in size and collapses >50% with inspiration. Pericardium There is no pericardial effusion. Other Information Study Quality: Fair Conclusion Normal biventricular systolic function. Mild RV dilation. Mild biatrial dilation. No significant valvular stenosis or regurgitation. Electronically signed by : Ailyn Acevedo MD 09/15/2024 13:10:20
== END 2024-09-04 23:59 | disposition home or self-care (01) ==
LOC: RT 07:48
PROVIDERS: PCP Internal Medicine Adolescent Medicine; Visit Provider Internal Medicine Adolescent Medicine
DX: I51.7 Cardiomegaly (principal); I89.0 Lymphedema, not elsewhere classified
CPT/HCPCS: 93306

== ENCOUNTER 2024-09-04 08:57 | Outpatient (POV) | payer MEDICARE, SELFPAY ==
[2024-09-04 09:20] VITALS: BP 126/70; PULSE 67; RESP 18; O2SAT 94; BMI 53.0
--- NOTE | 2024-09-04 11:42 | EXP.PAIN.OV ---
HPI Data of Consult Patient: new to practice Consult date: 09/04/24 Requesting Physician: Hyacinth Cooney APRN Primary Care Provider: Samuel Galeas MD Consult Narrative Reason for consult: Low back pain, bilateral leg pain History of present illness: Mr. Faustin is a 69 year old male who presents today as a new patient. He is a referral from Dr. Galeas's office. He rates his pain today while seated in 1 out of 10 however states that his pain is all related when he is up walking or moving he does state he goes to at least a 6 out of 10. Patient states this has been going on for years and progressively worsened. He does state that overall it is more the symptoms into his legs and numbness and tingling that really bother him and that the back does not start until after the leg symptoms 2. Patient has tried oral medications, heat and ice and topicals with minimal relief. Patient has had PT that made his symptoms worse and has done chiropractor therapy that helped but was often very temporary. He describes his pain as a deep dull sensation. He states the pain is interfering with his ability perform activities of daily living such as cooking and cleaning. He states he cannot walk very far without having to stop and take multiple breaks. He states that he also feels like he cannot concentrate due to the constant pain. Patient states he only is able to stand for a couple of minutes before he has to stop and sit. He has been on naproxen and Celebrex and other oral medications with minimal changes. Patient does have a history of kidney issues. Patient has been seen by neurosurgery at and did have his hip replaced in 2019 but states it made no additional improvement. Patient does feel like this pain is gone on for longer than 15 years. Patient has had injections in the past and states that they would help but were very temporary. He is interested in any options we may be able to provide. His Percy has been reviewed and is appropriate. CC: Hyacinth Cooney APRN [facility] Disclaimer: The information contained in this section may have been updated after the patient was seen, as this information can be updated by other users. Medical History Hypertension Surgical History History of colonoscopy History of right hip replacement Hx of cataract surgery Hx of inguinal hernia repair Family History Other Family history of cancer Family history of diabetes mellitus type II Family history of myocardial infarction Social History (Updated 09/04/24 @ 09:26 by Patricia Paige RN) Smoking Status: Never smoker second hand exposure: Yes alcohol intake: current alcohol intake frequency: a few times a week substance use type: denies use current occupational status: retired Travel in the last 8 weeks: None household members: spouse housing: house lives independently: Yes marital status: education level: high school service: No mcfp: No caffeine: Yes special vasquez needs: No agree to transfusion: No do you feel safe at home: Yes victim of physical abuse: No victim of emotional abuse: No victim of sexual abuse: No would you like helpful sources: No Review of Systems Review of Systems Review of systems:: pertinent systems reviewed and negative unless documented below Review of systems (narrative): Review of Systems: General: No recent weight changes, no fever, no sleep disturbances Respiratory: No cough, no shortness of air, no recurring pulmonary infections Cardiovascular/peripheral vascular: No chest pain, no palpitations, no edema, no shortness of breath Gastrointestinal: No new onset incontinence, normal bowel movements reported Genitourinary: No new onset incontinence Musculoskeletal: Low back pain, bilateral leg pain Psychiatric: [Normal mood/affect] Neurological: [Denies weakness in extremities], [denies balance issues] Meds Home Medications and Allergies Home Medications ?Medication ?Instructions ?Recorded ?Confirmed ?Type aspirin 81 mg tablet,delayed 81 mg PO DAILY HEART HEALTHY 05/18/20 09/04/24 History release doxazosin 2 mg tablet 4 mg PO DAILY BP 05/18/20 09/04/24 History duloxetine 30 mg capsule,delayed 30 mg PO QHS #30 caps 04/04/21 09/04/24 Rx release lisinopril 20 mg tablet 20 mg PO DIRECTED BLOOD PRESSURE 08/02/22 09/04/24 History lisinopril 20 1 tab PO DIRECTED BLOOD PRESSURE 08/02/22 09/04/24 History mg-hydrochlorothiazide 25 mg tablet New Prescriptions to Start Prescriptions: Allergies Allergy/AdvReac Type Severity Reaction Status Date / Time Penicillins Allergy Unknown Verified 08/02/22 14:51 allergy reaction Objective Vital signs: Pulse Resp BP Pulse Ox O2 Del Method 67 18 126/70 94 L Room Air 09/04/24 09:20 09/04/24 09:20 09/04/24 09:20 09/04/24 09:20 09/04/24 09:20 Narrative: Physical Exam: General: Alert and oriented x3, no acute distress, pleasant and cooperative Lungs: Respirations even and unlabored, symmetrical chest expansion Eyes: PERRL Musculoskeletal: Flexion and extension of lumbar [spine] somewhat guarded secondary to pain, [antalgic gait noted] positive shopping cart sign Neurological: Speech clear, no gross sensory deficit Assessment and Plan *Assessment and plan (1) Degenerative disc disease: Status: Acute Category: Medical (2) Chronic lumbar radiculopathy: Status: Acute Category: Medical Code(s): M54.16 - Radiculopathy, lumbar region (3) Spinal stenosis of lumbar region with neurogenic claudication: Status: Acute Category: Medical Code(s): M48.062 - Spinal stenosis, lumbar region with neurogenic claudication (4) Chronic pain syndrome: Status: Acute Category: Medical Code(s): G89.4 - Chronic pain syndrome (5) Ligamentum flavum hypertrophy: Status: Acute Category: Medical Code(s): M24.28 - Disorder of ligament, vertebrae Plan Patient does have very limited range of motion of his lumbar spine with symptoms consistent with spinal stenosis with neurogenic claudication symptoms. I did discuss at length with the patient that I do believe he would benefit from a minimally invasive lumbar decompression in the future. Risk and benefits and educational handouts were given at today's visit. We did discuss that this would most likely provide more improved function to allow him to walk for longer periods of time as well as hopefully give some improvement for his daily pain in his legs. Patient's previous imaging did show multilevel ligamentum flavum hypertrophy. I did discuss with the patient that we would start off by ordering a lumbar epidural with epidurogram and if he does well with this injection and does show that he is a potential candidate then we can proceed forward with the minimally invasive lumbar decompression in future. Patient is agreeable to this option. I will order the patient a compounded cream. Patient will be scheduled for a lumbar epidural L4-L5 with epidurogram under fluoroscopy. Patient has had chronic pain for longer than a year that has remained unchanged with conservative treatment such as oral medications, heat and ice, topicals, at home stretching exercise for longer than 12 weeks that was physician guided as well as physical therapy and chiropractor therapy. Patient has been instructed to contact the clinic with any concerns before the next appointment. Dr. Last has reviewed this note and agrees with this plan of care. This note was dictated using voice recognition software and make contain errors or omissions. All injections are used with Lidocaine, Bupivacaine and Depo Medrol. Occasionally urine drug screen is needed to verify patient's compliance with our office pain contract. This is ordered based off specific treatments related to chronic pain with the potential to abuse certain medications.
== END 2024-09-04 23:59 | disposition home or self-care (01) ==
PROVIDERS: PCP Internal Medicine Adolescent Medicine; Visit Provider Nurse Practitioner Family
DX: M48.062 Spinal stenosis, lumbar region with neurogenic claudication (principal); G89.4 Chronic pain syndrome; M24.28 Disorder of ligament, vertebrae; M51.16 Intervertebral disc disorders with radiculopathy, lumbar region; Z73.89 Other problems related to life management difficulty; Z96.641 Presence of right artificial hip joint
CPT/HCPCS: 99202; G0463

== ENCOUNTER 2024-09-26 11:59 | Day surgery (SDC) | payer MEDICARE, SELFPAY ==
[2024-09-26 12:02] VITALS: BP 126/67; PULSE 82; RESP 16; TEMP 36.9; O2SAT 95; BMI 50.1
[2024-09-26] MEDS: LIDOCAINE 1% 30ML PF VIAL 30 ML (12:58)
[2024-09-26] MEDS: methylPREDNISolone ACETATE 80MG/ML VIAL 80 MG (12:59)
[2024-09-26 13:00] VITALS: BP 133/64; PULSE 82; RESP 18; O2SAT 96
[2024-09-26 13:01] VITALS: BP 133/64; PULSE 82; RESP 18; O2SAT 96
[2024-09-26] MEDS: IOPAMIDOL-200 (41%);10ML VIAL 10 ML IV (13:08)
[2024-09-26 13:13] VITALS: BP 132/71; PULSE 75; RESP 16; O2SAT 96
--- NOTE | 2024-09-26 13:22 | XR_ITS ---
FINAL REPORT CLINICAL HISTORY: Right knee pain COMPARISON: None FINDINGS: RIGHT KNEE Three views demonstrate no acute fracture or dislocation. There is moderately advanced medial compartment joint space narrowing. There is subchondral sclerosis and osteophyte formation. There are moderate osteophytes along the undersurface of the patella. There is prepatellar soft tissue edema measuring up to 2.0 cm. IMPRESSION: Moderately advanced medial compartment and patellofemoral osteoarthritis. Prepatellar soft tissue edema. Reviewed, Interpreted and Dictated by Mc Syed MD Transcribed by Estefani Camargo Authenticated and [facility]
--- NOTE | 2024-09-26 16:42 | EXP.PAIN.PRO ---
Procedure Date: 09/26/24 Time: 16:42 Anesthesiologist:: Oren Last MD Complications:: None Pre-procedure Diagnosis:: Degenerative disc disease of lumbar spine with lumbar spinal stenosis and neurogenic claudication symptoms Post-procedure Diagnosis:: Same Indications for Procedure:: This patient is a pleasant 69-year-old white male who we have been treating for low back pain with lumbar radicular symptoms and lumbar spinal stenosis with neurogenic claudication symptoms. Patient presents for lumbar epidural steroid injection with epidurogram to assess levels of stenosis and candidacy for minimally invasive lumbar decompression. Procedure Details:: Informed consent was obtained and the risk and benefits of the procedure was explained to the patient. The patient was taken to the procedure room. The patient was placed prone on the procedure table. The patient was prepped and draped in sterile fashion. C-arm fluoroscopy was used to view the lumbar spine. Skin and subcutaneous tissues were anesthetized using lidocaine. I placed an 18-gauge epidural needle and advanced into the L4-L5 interspace using fluoroscopic guidance and [id number] to air. After confirmation of needle placement in the epidural space with dye I injected 2 mL of lidocaine 1.5% with Depo-Medrol 80 mg. Patient tolerated the procedure well with no complications. Plan and Disposition:: Based on patient's body habitus and size it was very difficult to get adequate imaging given these restrictions I do not believe he is a candidate for minimally invasive lumbar decompression unless he loses weight. Will follow-up with him in 2 to 3 weeks to assess efficacy of this lumbar pro steroid injection. However unless he loses a significant amount of weight we will not be able to proceed with evaluation for minimally invasive lumbar decompression.
== END 2024-09-26 13:13 | disposition home or self-care (01) ==
PROVIDERS: PCP Internal Medicine Adolescent Medicine; Visit Provider Anesthesiology
DX: M25.561 Pain in right knee (principal); M51.369 Other intervertebral disc degeneration, lumbar region without mention of lumbar back pain or lower extremity pain; M48.062 Spinal stenosis, lumbar region with neurogenic claudication
CPT/HCPCS: 62323; 73562; J1010; Q9966

== ENCOUNTER 2024-10-06 11:00 | Outpatient (RCR) | payer MEDICARE, SELFPAY ==
--- NOTE | 2024-09-10 12:23 | HMH.PTOPWND ---
Rehab Outpt Wound Evaluation Rehab OP Wound Evaluation Start: 09/10/24 10:08 Freq: Status: Active Protocol: Document 09/10/24 11:40 PHORJED (Rec: 09/10/24 12:22 PHORNE [id number]) E-signed By London Johnson, PT Subjective/History History History This is the initial PT lymphedema eval for Jc Faustin, 69 yowm who presents with c/o B LE increased lymphedema x ~ 7-8 yrs overall with c/o R LE edema for about 30 years. It's always been a lot worse than the left side. He reports no pain in B LE at this time, but he does have chronic lumbar back pain with B LE radicular symptoms for which he is treated by pain management. He reports extreme difficulty with all mobility at baseline. He has significantly increased pain with standing or walking for short periods of time, even 2- 3 mins. He has PMH of R ERASMO, HTN, and L inguinal hernia repair. Subjective Subjective Pt has no c/o pain at this time, 0/10. He presents with 1 /4 TTP to B lower legs with 3+ pitting edema to B lower legs with underlying MODERATE fibrotic edema. B LE with MILD erythema. R ko with multiple small open sores noted ~ 0.3 cm x 0.3 cm x 0.1 cm with moderate serous drainage noted. L ko with multiple red grouped patched that appear to be recently healed open sores as well. Lymphedema Eval Classification of Lymphedema Secondary Lymphedema Yes: CVI Stemmer's sign Stemmer's Sign yes Stage of Lymphedema Lymphedema stages Stage II (Pitting edema, increased fibrosis w/ decreased pitting) Skin Changes Dry Skin Yes Skin Folds Yes Hyperkeratosis Yes Redness Yes Wounds Yes Discoloration of Skin Yes Other Changes Yes Affected Extremities Areas Affected by Lymphedema/Edema Right Lower Extremity,Left Lower Extremity Lower Extremity Measurements Right MTP Measurement (cm) 28.4 Heel Measurement (cm) 41.0 10 cm Proximal to Lateral Malleoli 42.2 Measurement (cm) 20 cm Proximal to Lateral Malleoli 50.8 Measurement (cm) 30 cm Proximal to Lateral Malleoli 56.5 Measurement (cm) 40 cm Proximal to Lateral Malleoli 0 Measurement (cm) 50 cm Proximal to Lateral Malleoli 0 Measurement (cm) 60 cm Proximal to Lateral Malleoli 0 Measurement (cm) Lower Extremity Measurement Total (cm) 218.9 Left MTP Measurement (cm) 28.8 Heel Measurement (cm) 38.6 10 cm Proximal to Lateral Malleoli 40.0 Measurement (cm) 20 cm Proximal to Lateral Malleoli 46.8 Measurement (cm) 30 cm Proximal to Lateral Malleoli 52.4 Measurement (cm) 40 cm Proximal to Lateral Malleoli 0 Measurement (cm) 50 cm Proximal to Lateral Malleoli 0 Measurement (cm) 60 cm Proximal to Lateral Malleoli 0 Measurement (cm) Lower Extremity Measurement Total (cm) 206.6 Manual Lymphatic Drainage Treatment Area MLD Treatment Area Right Lower Extremity,Left Lower Extremity Wound Problems/Impairments Impairments Problems/Impairmments Palpation Tenderness,Impaired Range of Motion,Impaired Strength,Impaired Endurance, Impaired Transfers,Impaired Gait Pattern,Impaired Walking, Impaired Standing,Impaired Shower/Bathing,Impaired Household Care,Impaired Recreational Activities, Increased Edema,Lymphedema Present,Wound Care Needs, Impaired Self Care/Self Management Prognosis Rehab Potential Good Comment Skilled therapy is indicated to aid reduction of overall B LE edema burden and to reduce overall B LE wound surface area in order to return pt to PLOF. Pt reports he has attempted conservative treatment consisting of therapeutic exercise including ankle pumps and stationary bike, daily B LE elevation, and consistent compression garment wear without improvement of symptoms for greater than 12 weeks. Clinical Impression Consistent with Diagnosis Yes Consistent with also consistent with Additional details: CVI with stasis ulcers: I87. [id number] Short Term Goals Number of Weeks 4 Decrease Edema Yes: 2+ pitting edema to B LE Patient to Understand Lymphedema Yes Treatment and Exercises Decrease Girth Measurments by (cm) Yes: B LE total by 5 cm ea Half-Way Goals Number of Weeks 8 Decreased Palpation Tenderness Yes: 0/4 TTP to B lower legs Decrease Edema Yes: 1+ pitting edema to B LE Decrease Lymphedema Yes: MILD fibrotic edema to B LE Patient to be Ind w/ HEP Yes Patient to Adhere Lymphedema Precautions Yes Decrease Girth Measurments by (cm) Yes: B LE total by 15 cm ea Outpatient Therapy Plan of Care Treatment Plan May Include Therapeutic Exercise Including Home Yes Exercise Program Manual Therapy Techniques Yes Neuromuscular Re-education Yes Therapeutic Activities to Return to Yes Previous Functional/Work Level ADL/Self Care Education Yes Orthotics/Bracing/Splinting Yes Vasopneumatic Compression Pump Yes Manual Lymphatic Drainage Yes Wound Care Yes Eval/Re-Eval Yes Frequency Times per week 2 Duration Number of Weeks 8 Addendums This patient is a candidate for social No or vocational rehab? Patient/Guardian verbally acknowledges Yes understanding of treatment program and consents to further treatment? Patient/Guardian verbally acknowledges Yes understanding of diagnosis, prognosis and goals for treatment? Eval Complexity PT Charges 14787 - High Complexity PHYSICIAN CERTIFICATION: I certify the specified therapy services for Jc Faustin JR are required, authorized, and reviewed every 30 days.
== END 2024-10-06 23:59 | disposition home or self-care (01) ==
LOC: PT 11:00
PROVIDERS: PCP Internal Medicine Adolescent Medicine; Visit Provider Internal Medicine Adolescent Medicine
DX: I89.0 Lymphedema, not elsewhere classified (principal)
CPT/HCPCS: 97110; 97140; 97163

== ENCOUNTER 2024-10-09 16:00 | Outpatient (RCR) | payer MEDICARE, SELFPAY ==
--- NOTE | 2024-10-09 16:28 | HMH.RHREAS ---
Rehab Reassessment Rehab OP Re-assessment Start: 10/09/24 16:14 Freq: Status: Active Protocol: Document 10/09/24 16:16 ROBERT (Rec: 10/09/24 16:27 PHORJED [id number]) E-signed By London Johnson, PT Rehab Re-assessment Subjective Subjective Pt reports no c/o pain at this time in B LE. He does continue to have feelings of heaviness and stiffness in B knees. He feels happy with his progress and edema is typically reduced in the am after sleeping at night. Objective Objective Notes Circumferential Measurements: R LE total 192.7 cm which is - 26.2 cm since IE. L LE total 182.6 cm which is - 24.0 cm since IE. Pain: 0/10 B LE TTP: 0/4 B LE Edema: 2+ pitting edema noted to B lower legs. Assessment Progress Assessment Progressing as Expected Assessment Notes Pt has shown significant reduction of overall B LE edema based on circumferential measurements as noted. He does continue to have increased pitting edema and skilled therapy remains indicated to aid reduction of his edema in order to return him to PLOF with all ADLs. Patient goals met ST3 LT6 Plan Plan Continue per initial POC. Frequency of Therapy 1 x/wk Duration of therapy 4 wks Time and Billing Re-Eval Time 11 Re-Eval Billing Units 0 Charge for PT reassessment? No PHYSICIAN CERTIFICATION: I certify the specified therapy services for Jc Nic Faustin JR are required, authorized, and reviewed every 30 days.
== END 2024-10-09 23:59 | disposition home or self-care (01) ==
LOC: PT 16:00
PROVIDERS: PCP Internal Medicine Adolescent Medicine; Visit Provider Internal Medicine Adolescent Medicine
DX: I89.0 Lymphedema, not elsewhere classified (principal)
CPT/HCPCS: 97140

== ENCOUNTER 2024-10-10 13:22 | Outpatient (POV) | payer MEDICARE, SELFPAY ==
--- OUTSIDE RECORDS SUMMARY | 2024-10-10 13:24 | XMS_ITS | Data Portability ---
Author Organization [facility], [facility] Address [address] [place] [address] Care Team Providers Care Principal Bioinformatics Specialist Name Role Phone RABIA FLORENCE Primary Care Provider [phone] PHANI DORSEY Patient Information Coordinator NICOLE DICKERSON Patient Information Coordinator Assessment No assessment recorded. Plan of Treatment Reminders Order Date Submit Date Provider Last Modified By Organization Details Last Modified Time Details Appointments None recorded. Lab None recorded. Referral ophthalmolo gy, retina specialist referral - near-total RRD OD, tear at 1 oclock 2023 07 024 [id number] [facility]- Scheduling, [address] [facility] , [address], [place], [address], 4 07:57:07 Procedures None recorded. Surgeries None recorded. Imaging None recorded. Medication Orders None recorded. Patient TargetsNo targets recorded. Patient InstructionsNo instructions recorded. Reason for Referral Ophthalmology, Retina Specia list Referral for Retinal detachment near-total RRD OD, tear at 1 oclock near-total RRD OD, tear at 1 oclock Referring Physician: Obey Duron, Ophthalmology, Encounter Date: 12/25/2023 Procedures Surgical History Date Name Laterality Status Provider Name and Address Organization Details Recorded Time 4 YAG Capsulotomy completed PHANI DORSEY MD [address] [place] [address], [phone], [facility] 04/10/2024 12:46:52 Cataract Surgery completed Sharita Sun [facility] 04/10/2024 10:38:18 Retinal Detachment Repair completed Sharita SOLIS [facility] 04/10/2024 10:41:39 Imaging Results None recorded. Procedure Notes None recorded. Medical Equipment None Reported. Allergies No known drug allergies Medications Name Sig Start Date Stop Date Status Note LastModified by Organization Details LastModified Time metformin 500 mg tablet TAKE 1 TABLET BY MOUTH TWICE DAILY FOR 30 DAYS active Not Available Not Available No t Available promethazin e-DM 6.25 mg-15 mg/5 mL oral syrup TAKE 5 ML BY MOUTH EVERY 6 HOURS FOR 7 DAYS active Not Available Not Available No t Available azithromyci n 250 mg tablet active Not Available Not Available Not Available valacyclovi r 1 gram tablet TAKE 1 TABLET BY MOUTH THREE TIMES DAILY active Not Available Not Available No t Available hydrocodone 5 mg-acetamin ophen 325 mg tablet TAKE 1 TABLET BY MOUTH EVERY 6 HOURS NEEDED (DO NOT TAKE ADDITION TO TYLENOL) active Not Available Not Available No t Available prednisone 20 mg tablet TAKE 1 TABLET BY MOUTH TWICE DAILY WITH FOOD FOR 5 DAYS active Not Available Not Available No t Available ketorolac 10 mg tablet TAKE 1 TABLET BY MOUTH EVERY 8 HOURS NEEDED FOR PAIN FOR 3 DAYS active Not Available Not Available No t Available tamsulosin 0.4 mg capsule TAKE 1 CAPSULE BY MOUTH DAILY active Not Available Not Available No t Available erythromyci n 5 mg/gram (0.5 %) eye ointment APPLY 1 CM RIBBON OF OINTMENT TO LOWER CONJUNCTI CELIA SAC IN THE RIGHT EYE TWICE A DAY active Not Available Not Available No t Available oseltamivir 75 mg capsule TAKE 1 CAPSULE BY MOUTH TWICE DAILY FOR 5 DAYS active Not Available Not Available No t Available doxazosin 4 mg tablet active Not Available Not Available No t Available lisinopril 20 mg-hydrochl orothiazide 25 mg tablet active Not Available Not Available Not Available codeine 10 mg-guaifene sin 100 mg/5 mL oral liquid TAKE 10ML BY MOUTH EVERY 8 HOURS NEEDED FOR 10 DAYS active Not Available Not Available No t Available mupirocin 2 % topical ointment APPLY OINTMENT TOPICALLY THREE TIMES DAILY FOR 5 DAYS active Not Available Not Available No t Available methylpredn isolone 4 mg tablets in a dose pack FOLLOW PACKAGE DIRECTION S active Not Available Not Available No t Available cefdinir 300 mg capsule TAKE 1 CAPSULE BY MOUTH EVERY 12 HOURS FOR 7 DAYS active Not Available Not Available No t Available fluticasone propionate 50 mcg/actuati on nasal spray,suspe nsion USE 2 SPRAY(S) IN EACH NOSTRIL ONCE DAILY active Not Available Not Available No t Available spironolact one 50 mg tablet TAKE 1 TABLET BY MOUTH TWICE DAILY FOR 30 DAYS active Not Available Not Available No t Available bupropion HCl XL 300 mg 24 hr tablet, extended release TAKE 1 TABLET BY MOUTH EVERY 24 HOURS active Not Available Not Available No t Available levocetiriz ine 5 mg tablet TAKE 1 TABLET BY MOUTH ONCE DAILY IN THE EVENING active Not Available Not Available No t Available Combigan 0.2 %-0.5 % eye drops INSTILL 1 DROP IN RIGHT EYE TWICE DAILY 04/10 completed Not Available Not Available Not Available testosteron e 20.25 mg/1.25 gram per pump act.(1.62 %) transdermal gel APPLY 2 PUMPS TOPICALLY TO THE AFFECTED AREA ONCE DAILY IN THE MORNING active Not Available Not Available No t Available Procto-Med HC 2.5 % topical cream perineal applicator APPLY CREAM RECTALLY TWICE DAILY RECTALLY FOR 7 DAYS active Not Available Not Available No t Available Vitals None Recorded Social History None recorded. Functional Status None recorded. Mental Status None recorded. Family History Relationship Description Onset Age of this Age Resolved Age Notes LastModified by Organization Details LastModified Time Maternal Grandmother Glaucoma [email or web address] Not available 10:37:41 Medical History Condition Response Cataract N Glasses/Contacts N RD/retinal tear Y Diabetes N Eye Trauma N Past Encounters Encounter ID Performer Location Encounter Start Date Encounter Closed Date Diagnosis/Indication Diagnosis SNOMED-CT Code Diagnosis ICD10 Code Diagnosis Note [id number] PATRICIA MCFADDEN APRN GASTRO [place] [address] [facility], [address] [place] [address] 06/28/2022 15:06:16 07/01/2022 04:12:04 Abdominal pain 47307761 R10.9 Nausea 772061723 R11.0 History of pancreatitis [id number] 9107 Z87.19 Reported per patient. [id number] OBEY DURON MD OPHTHALMO [address] [place] [address] 12/25/2023 12:41:31 12/25/2023 14:11:04 Retinal detachment 80379926 H33.8 - near-total RRD, tear at 1 oclock OD- discussed need for retina specialist eval and likely surgery, referral placed Bilateral pseudophakia [id number] 2639975 Z96.1 - could consider YAG cap OS after RD OD resolved RTC 6 weeks - DFE [id number] PHANI DORSEY MD OPHTHALMO [facility] [address] [place] [address] 5 04/10/2024 10:16:33 04/10/2024 15:34:40 After-cataract with vision obscured following extraction of cataract 840024152 H26.499 diffuse and visually signficant discussed r/b/a including ret tears/floa ters -proceed po check - excellentr d si/sx discussed2 week po dil os mr ou Pseudophakia 78461555 Z9 6.1 History of retinal detachment 106219132 Z86.69 s/p recent RDR - flat today [id number] PHANI DORSEY MD OPHTHALMO [facility] [address] [place],[address] [place] [address] 5 05/14/2024 12:00:31 05/14/2024 12:26:10 After-cataract with vision obscured following extraction of cataract 116723693 H26.499 excellentr d si/sx discussedp t to rtc for mr only visit as pt was dilated prior to this visit elsewhere [id number] PHANI DORSEY MD OPHTHALMO [facility] [address] [place] [address] 5 07/15/2024 15:56:31 07/15/2024 17:31:59 After-cataract with vision obscured following extraction of cataract [id number] H26.499 excellentr d si/sx discussedp t to rtc for mr only visit as pt was dilated prior to this visit elsewherer ec rtc 6 mo complete [id number] PHANI DORSEY MD OPHTHALMO [place] [address] [place] [address] 5 08/04/2024 10:55:46 08/04/2024 12:22:58 After-cataract with vision obscured following extraction of cataract [id number] H26.499 remake mr today Health Concerns Section Related Observation LastModified by Organization Detai ls LastModified Time None Recorded Concern Status LastModified by Organization Details LastModified Time None Recorded Advance Directives Directive None Recorded Payers Encounter Date Sequence Insurance Name Policy Number Policy Andrews Covered Member ID Andrews Member ID Guarantor Name 12/25/2023 1 [employer] (MEDICARE REPLACEMENT/ ADVANTAGE - PPO) Jc Faustin Jr [id number] Jc Faustin 04/10/2024 1 [employer] (MEDICARE REPLACEMENT/ ADVANTAGE - PPO) Jc Faustin [id number] Jc Faustin 05/14/2024 1 [employer] (MEDICARE REPLACEMENT/ ADVANTAGE - PPO) Jc Faustin Jr [id number] Jc Simon Roxie 07/15/2024 1 [employer] (MEDICARE REPLACEMENT/ ADVANTAGE - PPO) Jc Faustin Jr [id number] Jc Goyaldereje 08/04/2024 1 [employer] (MEDICARE REPLACEMENT/ ADVANTAGE - PPO) Jc Faustin [id number] Jc Faustin Notes Date Note Type Note Provider Name and Address Organization Details Recorded Time 12/25/2023 text/html Here for routine eye exam. Vision blurry OD>>OS over past 4-6 weeks or so. Wears no glasses. No eye pain, pain with eye movement, headache, jaw pain, pain with chewing, numbness/tingl ing, or weakness.H/o CEIOL OU. No other h/o eye surgery, trauma, or eye disease. Uses ATs infrequently. OBEY DURON MD [facility] [place], [address], [facility] 12/25/2023 14:02:11
[2024-10-10 13:35] VITALS: BP 149/85; PULSE 92; RESP 16; O2SAT 96; BMI 49.4
--- NOTE | 2024-10-10 14:53 | A.OFFVIS_ITS ---
[facility] Disclaimer: The information contained in this section may have been updated after the patient was seen, as this information can be updated by other users. Medical History Hypertension Surgical History History of colonoscopy History of right hip replacement Hx of cataract surgery Hx of inguinal hernia repair Family History Other Family history of cancer Family history of diabetes mellitus type II Family history of myocardial infarction Social History Smoking Status: Never smoker second hand exposure: Yes alcohol intake: current alcohol intake frequency: a few times a week substance use type: denies use current occupational status: other Travel in the last 8 weeks?: None household members: spouse housing: house lives independently: Yes marital status: education level: high school service: No fci: No caffeine: Yes special vasquez needs: No agree to transfusion: No do you feel safe at home: Yes victim of physical abuse: No victim of emotional abuse: No victim of sexual abuse: No would you like helpful sources: No PM Subjective & Objective Subjective Subjective:: Patient is a pleasant 69-year-old male who presents today for follow-up of his lumbar epidural steroid injection with epidurogram. Today he rates his pain a 3 out of 10. He states while he is seated it does seem to be much better however as soon as he gets up and walks it does get much worse. Patient does believe that the injection did help about 50% but it did take about a 24 hours to kick can. Patient does state he still has those same symptoms where he cannot walk very long without having to stop and take multiple breaks. Patient does also state that he has been going to a provider for massage to help with his leg swelling and since then he feels like he has noticed a little bit more knee pain. Patient states he has had chronic knee pain in the past and has even gone to the arthritis center about a year and a half ago and had a series of 6 injections that did provide significant relief. Patient does state that he has also had plain intra-articular injections however those did not seem to do his well and he knows he needs to make a follow-up appointment with the arthritis Center. Patient does state that this is just a dull ache and feels like he has a lot of tension or pressure in multiple areas. His Percy has been reviewed and is appropriate. Review of Systems: General: No recent weight changes, no fever, no sleep disturbances Respiratory: No cough, no shortness of air, no recurring pulmonary infections Cardiovascular/peripheral vascular: No chest pain, no palpitations, no edema, no shortness of breath Gastrointestinal: No new onset incontinence, normal bowel movements reported Genitourinary: No new onset incontinence Musculoskeletal: Low back pain, leg pain, bilateral knee pain Psychiatric: [Normal mood/affect] Neurological: [Denies weakness in extremities], [denies balance issues] Pain at rest (0-10 scale): 3 Objective Objective:: Physical Exam: General: Alert and oriented x3, no acute distress, pleasant and cooperative Lungs: Respirations even and unlabored, symmetrical chest expansion Eyes: PERRL Musculoskeletal: Flexion and extension of lumbar [spine] somewhat guarded secondary to pain, [antalgic gait noted] Neurological: Speech clear, no gross sensory deficit Has patient had previous pain injection?: Yes Percent improvement in pain since last injection: 50% Conservative treatment options previously tried: Home exercise plan Length of treatment: Longer than 12 weeks Meds Home Medications and Allergies Home Medications ?Medication ?Instructions ?Recorded ?Confirmed ?Type aspirin 81 mg tablet,delayed 81 mg PO DAILY HEART HEALTHY 05/18/20 10/10/24 History release doxazosin 2 mg tablet 4 mg PO DAILY BP 05/18/20 10/10/24 History duloxetine 30 mg capsule,delayed 30 mg PO QHS #30 caps 04/04/21 10/10/24 Rx release lisinopril 20 mg tablet 20 mg PO DIRECTED BLOOD PRESSURE 08/02/22 10/10/24 History lisinopril 20 1 tab PO DIRECTED BLOOD PRESSURE 08/02/22 10/10/24 History mg-hydrochlorothiazide 25 mg tablet methocarbamol 750 mg tablet 750 mg PO TID #42 tabs 10/10/24 Rx New Prescriptions to Start Prescriptions: methocarbamol Hyacinth Cooney Allergies Allergy/AdvReac Type Severity Reaction Status Date / Time Penicillins Allergy Unknown Verified 08/02/22 14:51 allergy reaction Assessment and Plan *Assessment and plan (1) Ligamentum flavum hypertrophy: Status: Acute Category: Medical Code(s): M24.28 - Disorder of ligament, vertebrae (2) Chronic pain syndrome: Status: Acute Category: Medical Code(s): G89.4 - Chronic pain syndrome (3) Spinal stenosis of lumbar region with neurogenic claudication: Status: Acute Category: Medical Code(s): M48.062 - Spinal stenosis, lumbar region with neurogenic claudication (4) Chronic lumbar radiculopathy: Status: Acute Category: Medical Code(s): M54.16 - Radiculopathy, lumbar region (5) Degenerative disc disease: Status: Acute Category: Medical Plan I did discuss with the patient that although the epidural did help with epidurogram currently he would not necessarily be a candidate for the mild procedure due to the fact of his weight. Patient does state that Dr. Last did review over this with him. We did also review in future that he may benefit from a intrathecal pump trial however this would also most likely require him to lose some weight. Patient will be sent in a prescription of methocarbamol 750 mg 3 times daily as needed with a 2-week supply. Patient was counseled to call our office if this helps and we will send additional refills. Patient did get overall beneficial help with the epidural and we will follow-up with him in 6 weeks for additional evaluation. Patient has been instructed to contact the clinic with any concerns before the next appointment. Dr. Last has reviewed this note and agrees with this plan of care. This note was dictated using voice recognition software and make contain errors or omissions. All injections are used with Lidocaine, Bupivacaine and dexamethasone. Occasionally urine drug screen is needed to verify patient's compliance with our office pain contract. This is ordered based off specific treatments related to chronic pain with the potential to abuse certain medications.
== END 2024-10-10 23:59 | disposition home or self-care (01) ==
PROVIDERS: PCP Internal Medicine Adolescent Medicine; Visit Provider Nurse Practitioner Family
DX: M24.28 Disorder of ligament, vertebrae (principal); G89.4 Chronic pain syndrome; M48.062 Spinal stenosis, lumbar region with neurogenic claudication; M54.16 Radiculopathy, lumbar region; Z96.641 Presence of right artificial hip joint
CPT/HCPCS: 99212; G0463

== ENCOUNTER 2024-11-04 14:00 | Outpatient (RCR) | payer MEDICARE, SELFPAY | END 2024-11-04 23:59 | disposition home or self-care (01) | LOC: PT 14:00 | PROVIDERS: Visit Provider Internal Medicine Adolescent Medicine | DX: I89.0 Lymphedema, not elsewhere classified (principal) | CPT/HCPCS: 97140 ==

== ENCOUNTER 2024-12-01 07:51 | Outpatient (RCR) | payer MEDICARE, SELFPAY | END 2024-12-01 23:59 | disposition home or self-care (01) | LOC: PT 07:51 | PROVIDERS: Visit Provider Internal Medicine Adolescent Medicine | DX: I89.0 Lymphedema, not elsewhere classified (principal) | CPT/HCPCS: 97140 ==

== ENCOUNTER 2024-12-03 15:26 | Outpatient (RCR) | payer MEDICARE, SELFPAY | END 2024-12-03 23:59 | disposition home or self-care (01) | LOC: PT 15:26 | PROVIDERS: Visit Provider Internal Medicine Adolescent Medicine | DX: M54.50 Low back pain, unspecified (principal); M79.605 Pain in left leg; M79.604 Pain in right leg; R93.7 Abnormal findings on diagnostic imaging of other parts of musculoskeletal system; R94.130 Abnormal response to nerve stimulation, unspecified ==

== ENCOUNTER 2025-01-23 09:01 | Outpatient (CLI) | payer MEDICARE, SELFPAY ==
--- OUTSIDE RECORDS SUMMARY | 2025-01-23 09:04 | XMS_ITS | Encounter Summary ---
Author Organization [facility] Address [address] [place] [id number] Care Team Providers Care Pipe Machine Operator Name Role Phone Samuel Galeas MD Primary Care Provider Encounter Details Date Type Department Care Team (Late st Contact Info) Description 07/11/2021 Telephone [facility] [address] [place] [phone] Jann Orozco MD [address] [facility] [address] [place] [address] Social History Tobacco Use Types Packs/Day Years Used Date Smoking Tobacco: Former Cigarettes 1 14 1 973 - 1987 Smokeless Tobacco: Former Chew Quit: 2018 Alcohol Use Standard Drinks/Week Comments Yes 5 (1 standard drink = 0.6 oz pur e alcohol) Sex and Gender Information Value Date Recorded Sex Assigned at Not on file Legal Sex Male 12:44 PM EDT Gender Identity Not on file Sexual Orientation Not on file documented as of this encounter Plan of Treatment Not on file documented as of this encounter Visit Diagnoses Not on filedocumented in this encounter Care Teams Pipe Machine Operator Relationship Specialty Start Date End Date Samuel Galeas MD [address] [place] [address] PCP - General Adolescent Medicine 06/29/21 documented as of this encounter
--- OUTSIDE RECORDS SUMMARY | 2025-01-23 09:04 | XMS_ITS | Clinical Summary ---
Author Organization Healthcare Address [address] [place] [address] Care Team Providers Care Manager Medicaid Name Role Phone Rupert Clinton MD Primary Care Provider [phone] Family History Medical History Relation Name Comments Arthritis Father Breast cancer Mother Relation Name Status Comments Father Mother Social History Tobacco Use Types Packs/Day Years Used Date Smoking Tobacco: Never Sex and Gender Information Value Date Recorded Sex Assigned at Not on file Legal Sex Male 8:45 PM EDT Gender Identity Not on file Sexual Orientation Not on file Last Filed Vital Signs Vital Sign Reading Time Taken Comments Blood Pressure - - Pulse - - Temperature - - Respiratory Rate - - Oxygen Saturation - - Inhaled Oxygen Concentration - - Weight 163 kg (360 lb 7.2 oz) 04/10/2017 2:33 P M EDT Height 175.3 cm (5' 9 ) 04/10/2017 2:33 PM EDT Body Mass Index 53.23 04/10/2017 2:33 PM EDT Plan of Treatment Not on file Care Teams Manager Medicaid Relationship Specialty Start Date End Date Rupert Clinton MD [address] [place] [address] PCP - General 10/22/20
--- OUTSIDE RECORDS SUMMARY | 2025-01-23 09:04 | XMS_ITS | Clinical Summary ---
Author Organization [facility] Address [address] [place] [address] Care Team Providers Care Technical Assoc Name Role Phone Samuel Galeas MD Primary Care Provider [phone] Allergies Active Allergy Reactions Criticality Noted Date Comments Penicillins Unknown - Low Severity Low 07/02/2021 Childhood allergy. Reaction unknown; Pt stated he has tolerated it well as an adult Medications aspirin 81 MG EC tablet Take 1 tablet by mouth Daily. Active naproxen (NAPROSYN) 375 MG tablet Every 12 (Twelve) Hours. Active Concord-3 Fatty Acids (FISH OIL PO) Take by mouth. 3 times, weekly Active doxazosin (CARDURA) 4 MG tablet Take 1 tablet by mouth Every Night. Active multivitamin with minerals tablet tablet Take 1 tablet by mouth Daily. Active lisinopril-hydr ochlorothiazide (PRINZIDE,ZESTO RETIC) 20-25 MG per tablet Take 1 tablet by mouth Daily. Active methylPREDNISol one (MEDROL) 4 MG dose pack Take as directed on package instructions. 21 tablet 02/20/2023 Active Active Problems Problem Noted Date Diagnosed Date ANDREA (obstructive sleep apnea) 08/17/2022 Assessment & Plan (08/17/2022 1:40 PM EST): He has a known history of severe sleep apnea. He has baseline AHI is greater than 100. He is on PAP therapy. Download reviewed with good control and good compliance. He is benefiting from PAP therapy and we plan to continue PAP therapy. Supply order to the DME of his choice. Hypertension 08/17/2022 Assessment & Plan (08/17/2022 1:40 PM EST): He has a known history of hypertension with coexisting left ventricular hypertrophy that is mild on his last echo. His blood pressure today is 136/78. He is encouraged to continue his blood pressure medications, low-sodium diet, weight loss. Morbid obesity with BMI of 45.0-49.9, adult 02/2023 Assessment & Plan (08/17/2022 1:41 PM EST): He reports that his weight is down 20 pounds since his last visit. Unfortunately the weight loss was due to a recent pancreatitis after a medication side effect from Mounjaro. He reports that he is continuing to improve his diet, decrease his portion control and increase his activity. Osteoarthritis 07/27/2021 Low back pain 05/21/2020 Family History Medical History Relation Name Comments Diabetes Brother Heart attack Brother Stroke Brother Arthritis Father Alzheimer's disease Mother Arthritis Mother Cancer Mother BREAST Dementia Mother Heart disease Mother Hypertension Mother Heart disease Other FAM HX Atrial fibrillation Sister Relation Name Status Comments Brother (Age 65) Father (Age 78) Mother Other FAM HX Sister Social History Tobacco Use Types Packs/Day Years Used Date Smoking Tobacco: Former Cigarettes 1 14 1 3 - 1986 Smokeless Tobacco: Former Chew Quit: 2018 Alcohol Use Standard Drinks/Week Comments Yes 5 (1 standard drink = 0.6 oz pur e alcohol) Abuse Screen Answer Date Recorded Unsafe at Home or Work/School Not on file Feels Threatened by Someone? Not on file 05/2024 Does Anyone Keep You from Co ntacting Others or Doint Things Outside the Home? Not on file 02/21/2024 Physical Sign of Abuse Present Not on file 0 02/21/2024 Housing Stability Answer Date Recorded Current Living Arrangements Not on file 02/2023 Potentially Unsafe Housing Conditions Not on deandre e 03/19/2023 Family and Community Support Answer Armando e Recorded Help with Day-to-Day Activities Not on file 03/19/2023 Lonely or Isolated Not on file 03/19/2023 Employment Answer Date Recorded Do you want help finding or keeping work or a dahlia b? Not on file 03/19/2023 Disabilities Answer Date Recorded Concentrating, Remembering, or Making Decisions Difficulty Not on file 03/19/2023 Doing Errands Independently Difficulty Not on fi le 03/19/2023 Education Answer Date Recorded Help with school or training? Not on file Preferred Language Not on file 03/19/2023 Sex and Gender Information Value Date Recorded Sex Assigned at Not on file Legal Sex Male 12:44 PM EDT Gender Identity Not on file Sexual Orientation Not on file Last Filed Vital Signs Vital Sign Reading Time Taken Comments Blood Pressure 164/88 02/20/2023 11:08 AM EDT Pulse 80 02/20/2023 11:08 AM EDT Temperature 36.6 C (97.9 F) 02/20/2023 11:08 AM EDT Respiratory Rate 19 02/20/2023 11:08 AM EDT Oxygen Saturation 94% 02/20/2023 11:08 AM EDT Inhaled Oxygen Concentration - - Weight 170 kg (375 lb) 02/20/2023 11:08 AM EDT Height 185.4 cm (6' 1 ) 02/20/2023 11:08 AM EDT Body Mass Index 49.48 02/20/2023 11:08 AM EDT Plan of Treatment Health Maintenance Due Date Last Done Comments TDAP/TD VACCINES (1 - Tdap) 1975 COLON CANCER SCREENING 5 YEA R SIGMOIDOSCOPY [address] COLONOGRAPHY 2001 FECAL OCCULT BLOOD TEST 2001 FIT Testing (1 year) 2001 Pneumococcal Vaccine 50+ (1 of 1 - PCV) 2006 ZOSTER VACCINE (1 of 2) 2006 ANNUAL WELLNESS VISIT 07/02/2021 HEPATITIS C SCREENING 07/02/2021 AAA SCREEN ONCE 2021 COVID-19 Vaccine ( season) 2024, 08/25/2020 INFLUENZA VACCINE 03/11/2025 COLOGUARD 10/31/2025 10/31/2022, 10/20/2019 COLORECTAL CANCER SCREENING 10/31/2025 Insurance [id number] MEDICARE ADVANTAGE Care Teams Technical Assoc Relationship Specialty Start Date End Date Samuel Galeas MD [address] [facility] [address] [place] [id number] PCP - General Adolescent Medicine 06/29/21
--- NOTE | 2025-01-23 09:11 | XR_ITS ---
FINAL REPORT CLINICAL HISTORY: fall, right lower rib pain COMPARISON: None FINDINGS: Three views of the right ribs show an acute fracture of the anterolateral right 8th rib and question of a 7th rib fracture. There is no pneumothorax or pleural fluid collection. Frontal chest radiograph is unremarkable. IMPRESSION: Right 8th rib fracture and possible 7th rib fracture. Reviewed, Interpreted and Dictated by Kalani Segura MD Transcribed by Elo Iyer Authenticated and [facility]
--- NOTE | 2025-01-23 09:11 | XR_ITS ---
FINAL REPORT CLINICAL HISTORY: RT SHOULDER/RIB PAIN COMPARISON: None FINDINGS: Three views of the right shoulder show no evidence of acute displaced fracture or dislocation of the visualized bony architecture. Moderate AC joint arthropathy. Mild degenerative change of the glenohumeral joint. IMPRESSION: No acute process. Reviewed, Interpreted and Dictated by Kalani Segura MD Transcribed by Elo Iyer Authenticated and [facility]
== END 2025-01-23 23:59 | disposition home or self-care (01) ==
LOC: RAD 09:02
PROVIDERS: PCP Internal Medicine Adolescent Medicine; Visit Provider Internal Medicine Adolescent Medicine
DX: S22.31XA Fracture of one rib, right side, initial encounter for closed fracture (principal); M25.511 Pain in right shoulder; W19.XXXA Unspecified fall, initial encounter
CPT/HCPCS: 71101; 73030